=== PATIENT | female | born 1990 | race Two or more races ===

== ENCOUNTER 2023-05-20 08:18 | Outpatient (CLI) | payer OTHER | END 2023-05-20 08:25 | disposition home or self-care (01) | LOC: SONOGRAMA 08:18 | PROVIDERS: ATTEND Pathology Anatomic Pathology & Clinical Pathology | DX: D44.0 Neoplasm of uncertain behavior of thyroid gland (principal); D34 Benign neoplasm of thyroid gland; E04.9 Nontoxic goiter, unspecified; E07.9 Disorder of thyroid, unspecified ==

== ENCOUNTER 2023-12-27 10:45 | Outpatient (CLI) | payer OTHER | END 2023-12-27 10:51 | disposition home or self-care (01) | LOC: SONOGRAMA 10:45 | PROVIDERS: ATTEND Pathology Anatomic Pathology & Clinical Pathology | DX: D34 Benign neoplasm of thyroid gland (principal); D44.0 Neoplasm of uncertain behavior of thyroid gland; E07.89 Other specified disorders of thyroid; E04.8 Other specified nontoxic goiter ==